=== PATIENT | female | born 1990 | race Caucasian/White ===

== ENCOUNTER 2017-11-15 10:52 | Emergency (ER) | payer OTHER ==
[~2017-11-15] VITALS: Ht 160 cm; Wt 99.0 kg
[2017-11-15] MEDS ORDERED: ACETAMINOPHEN 325 MG TABLET PO ONE (12:00)
[2017-11-15 13:16] VITALS: BP 127/76
== END 2017-11-15 13:22 | disposition home or self-care (01) ==
LOC: EMS 10:55
DX: S63.502A Unspecified sprain of left wrist, initial encounter (principal); X58.XXXA Exposure to other specified factors, initial encounter; Y93.89 Activity, other specified; Y92.89 Other specified places as the place of occurrence of the external cause; Y99.8 Other external cause status
CPT/HCPCS: 99283